=== PATIENT | female | born 1945 | race Caucasian/White ===

== ENCOUNTER 2018-09-28 09:50 | Outpatient (CLI) | payer MEDICARE, BC | END 2018-09-28 09:51 | disposition home or self-care (01) | LOC: BICMAMMO 09:50 | PROVIDERS: ATTEND Internal Medicine | DX: Z12.31 Encounter for screening mammogram for malignant neoplasm of breast (principal); R92.1 Mammographic calcification found on diagnostic imaging of breast | CPT/HCPCS: 77063; 77067 ==

== ENCOUNTER 2019-04-19 04:58 | Inpatient (IN) | payer MEDICARE, BC ==
[2019-04-19] MEDS ORDERED: Ondansetron ODT 4 MG TAB ONE (05:09)
[2019-04-19 05:23] LABS: #Eosinphils 0.1 thou/uL (0.0-0.7); #Lymphocytes 3.3 thou/uL (1.20-3.40); #Monocytes 0.6 thou/uL (0.11-0.59); #Neutrophils 6.1 thou/uL (1.40-6.50); %Eosinophils 1.4 % (0.0-10.0); %Lymphocytes 32.5 % (21.0-51.0); %Monocytes 6.2 % (0.0-10.0); Mean Corpuscular HGB CONC 33.4 g/dL (32.0-36.0); Mean Corpuscular Hemoglobin 30.7 pg (27.0-31.0); Mean Corpuscular Volume 91.8 fL (78.0-98.0); Mean Platelet Volume 8.9 fL (7.4-10.4); Platelet Count 200 thou/uL (130-400); RBC Distribution Width 13.4 % (11.5-14.5); White Blood Cell (WBC) Count 10.2 thou/uL (4.8-10.8)
[2019-04-19 05:40] LABS: ALT (SGPT) 126 U/L (8-55); AST (SGOT) 137 U/L (5-34); Alkaline Phosphatase 246 U/L (40-150); Anion Gap 16 mmol/L (10-20); BUN (Urea Nitrogen) 24 mg/dL (9.8-20.1); Bilirubin, Total 3.3 mg/dL (0.2-1.2); CK (CPK) 20 U/L (29-168); Calc. Creatinine Clearance 0 mL/min (70-130); Calcium 9.8 mg/dL (7.8-10.44); Carbon Dioxide 26 mmol/L (23-31); Chloride 100 mmol/L (98-107); Estimated GFR-MDRD 52; Globulin 3.1 g/dL (2.4-3.5); Glucose 127 mg/dL (83-110); Lipase 29 U/L (8-78); Potassium 3.7 mmol/L (3.5-5.1); Protein, Total 7.1 g/dL (6.0-8.3); Sodium 138 mmol/L (136-145)
[2019-04-19] MEDS ORDERED: Ondansetron PF 4 MG/2 ML Vial ONE (05:50)
[2019-04-19] MEDS ORDERED: Morphine 4 MG/ML VIAL ONE ×2 (05:50→06:29)
[2019-04-19] MEDS ORDERED: Promethazine HCl 25 MG/ML VIAL ONE (06:29)
--- NOTE | 2019-04-19 07:36 | ULT ---
Sonogram right upper quadrant HISTORY: Upper abdomen pain. FINDINGS: Gallbladder is distended up to 11.7 cm width echogenic sludge in the dependent portion. Pat ient was reportedly tender over the gallbladder fossa at the time of the exam. No gallbladder wall thickening or pericholecystic fluid. Common duct is slightly dilated at 0.8 cm. There is mild distent ion of the intrahepatic biliary system. No free fluid in the abdomen. IMPRESSION: Findings of central biliary obstruction and acute cholecystitis include dilatation of the gallbladder and common duct, and intrahepatic biliary system. Positive sonographic Young's sign was also present, along with biliary sludge in the gallbladder.
[2019-04-19 08:50] LABS: Troponin I Less than 0.010 ng/mL (< 0.028)
[2019-04-19] MEDS ORDERED: Morphine 2 MG/ML SYRINGE ONE (09:58)
[2019-04-19] MEDS ORDERED: Ondansetron PF 4 MG/2 ML Vial IVP PRN (10:35)
[2019-04-19] MEDS ORDERED: Bisacodyl 5 MG TAB PO PRN (10:35)
[2019-04-19 12:33] LABS: Troponin I Less than 0.010 ng/mL (< 0.028)
--- NOTE | 2019-04-19 13:24 | CON ---
DATE OF CONSULTATION: 04/19/2019 CHIEF COMPLAINT: Abdominal pain. HISTORY OF PRESENT ILLNESS: Ms. Knight is a 73-year-old woman, who woke up with sudden onset epigastric pain on Thursday night. The pain lasted for 2 hours and went away after taking some Zantac. She did fine yesterday and then at 1:30 this morning, she awoke again with sharp severe epigastric pain associated with an episode of nausea and vomiting. She waited till her son was up this morning and then he drove her to the emergency room for further care. She was given morphine in the emergency room with improvement in her pain, but as the morphine wears off, her pain returns. She has had three doses of the morphine now. She has had no further vomiting. No hematemesis. No diarrhea, constipation, or blood in the stool. No weight changes recently. No fever. The pain does radiate through to her back. PAST MEDICAL HISTORY: Hypertension, diverticulitis, and peptic ulcer. She was diagnosed with a DVT in the leg back in October, was started on Eliquis. Her last dose of Eliquis was last night. PAST SURGICAL HISTORY: Hysterectomy and a lesion removed from the back of her neck. FAMILY HISTORY: Negative for GI malignancy or pancreatic cancer. SOCIAL HISTORY: Rare alcohol. No drugs. No smoking. ALLERGIES: SULFA. MEDICATIONS: Prior to admission; 1. Biotin. 2. Prilosec. 3. Calcium. 4. Vitamin D. 5. Lisinopril 20 mg daily. 6. Metoprolol 100 mg daily. 7. Hydrochlorothiazide 50 mg daily. REVIEW OF SYSTEMS: Negative x10 systems reviewed except as stated in history of present illness. PHYSICAL EXAMINATION: VITAL SIGNS: Blood pressure 149/92, pulse 75, and temperature 98.0. GENERAL: She is in no acute distress. Alert and oriented x3. HEENT: Eyes have no scleral icterus. Oropharynx is clear without lesions. No cervical or supraclavicular lymphadenopathy. LUNGS: Clear to auscultation bilaterally. HEART: Regular rate and rhythm without murmur. ABDOMEN: Soft. She has mild tenderness in the epigastric region without guarding. Bowel sounds are present. EXTREMITIES: No lower extremity edema. Cranial nerves are grossly intact. LABORATORY DATA: White blood cell count 10.2, hemoglobin is 15.0, and platelets 200. Creatinine 1.04, bilirubin 3.3, AST 137, ALT 126, alkaline phosphatase 246, albumin 4.0, and lipase 29. IMAGING: She had an ultrasound in the emergency room that shows dilation of the common bile duct at 0.8 cm with mild intrahepatic dilation and sludge in the gallbladder. IMPRESSION: 1. Possible choledocholithiasis presenting with obstructive liver tests and dilation of the intra and extrahepatic bile ducts and sludge in the gallbladder with abrupt onset of epigastric pain that radiates through to her back. There are no signs of cholangitis. Her lipase is normal. 2. History of deep venous thrombosis, diagnosed back in October, now on Eliquis with her last dose of Eliquis having been last night. 3. Hypertension. RECOMMENDATIONS: 1. Repeat her liver tests in the morning. If the liver tests are trending up, then proceed with ERCP. 2. If the liver tests are markedly improved, then she could proceed with cholecystectomy with intraoperative cholangiogram and then follow with ERCP if the IOC is abnormal. 3. General Surgery consultation. 4. Recheck her liver tests, lipase, and coags in the morning. Job ID: [id number]
--- NOTE | 2019-04-19 14:48 | HP ---
PRIMARY CARE PROVIDER: Vitaly Davies MD CHIEF COMPLAINT: Abdominal pain. HISTORY OF PRESENT ILLNESS: Ms. Knight is a pleasant 73-year-old lady, who was seen at [facility] on April 19, 2019. She reports that 2 nights ago, she had epigastric pain, which were sharp, 10/10 and radiating to the back. At that time, it was not accompanied by nausea or vomiting. 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 The pain resolved after she took some Zantac. She had a recurrence of the pain around 1:30 a.m. today. She describes it as sharp, epigastric, radiating to back, accompanied by nausea. She vomited once and has been retching. She has been taking shallow breaths because taking deep breaths was worsening the pain. She denies any fevers or chills. She denies any chest pain. She presented to the emergency room because of ongoing epigastric pain. When I saw her, the intensity of pain was 3/10. REVIEW OF SYSTEMS: All other systems were reviewed and found to be negative. PAST MEDICAL HISTORY: Hypertension, gastroesophageal reflux disease, and deep vein thrombosis of right leg diagnosed in October 2018, for which she is on apixaban. PAST SURGICAL HISTORY: Hysterectomy. FAMILY HISTORY: Myocardial infarction in her grandmother. CODE STATUS: I discussed her code status. She is full code. CURRENT MEDICATIONS: 1. Apixaban 2.5 mg 2 times a day. 2. Hydrochlorothiazide 50 mg daily. 3. Lisinopril 20 mg daily. 4. Metoprolol succinate 100 mg daily. 5. Biotin 2500 mcg daily. 6. Prilosec 20 mg daily. 7. Calcium 1200 mg daily. 8. Vitamin D3 1000 units daily. PHYSICAL EXAMINATION: GENERAL: On examination, Ms. Knight is awake and alert, not in acute distress. VITAL SIGNS: Blood pressure is 121/63, pulse 108, respiratory rate 20, and oxygen saturation 93% on room air. She is afebrile. EYES: Scleral icterus, no conjunctival pallor. ENT: Dry mucosal membranes. No oropharyngeal erythema or exudates. NECK: Supple, nontender, trachea is midline. RESPIRATORY: Accessory muscles of breathing are not active. Chest wall movements are symmetric bilaterally. Lungs are clear to auscultation without wheeze, rhonchi, or crepitations. CARDIOVASCULAR: S1 and S2 are heard, regular. Peripheral pulses palpable. No carotid bruit. No pericardial rub. ABDOMEN: Soft, mild epigastric and right upper quadrant tenderness. No guarding or rigidity. Bowel sounds heard. No hepatomegaly. No splenomegaly. Young sign is negative. NEUROLOGIC: Cranial nerves 2 through 12 intact, deep tendon reflexes 2+. MUSCULOSKELETAL: Power is 5/5 in all 4 extremities. SKIN: No rashes or subcutaneous nodules. LYMPHATIC: No cervical lymphadenopathy. PSYCHIATRIC: Normal mood, normal affect. The patient is oriented to person, place, and time. LABORATORY DATA: Ms. Knight's labs and investigations were reviewed. Lead electrocardiogram showed normal sinus rhythm with occasional premature ventricular complexes, no ST changes to suggest an acute coronary syndrome. Abdominal ultrasound showed dilatation of the gallbladder and common duct and intrahepatic biliary system. The patient also had a positive sonographic Young sign along with biliary sludge in the gallbladder. She has an unremarkable CBC, normal electrolytes, elevated blood urea nitrogen of 24, normal creatinine, elevated total bilirubin of 3.3, elevated AST of 137, elevated ALT of 126, elevated alkaline phosphatase of 246, and normal troponin I x3. Lipase is normal. ASSESSMENT AND PLAN: Ms. Knight is a pleasant 73-year-old lady, who was seen at [facility] on April 19, 2019. Her problem list includes: 1. Abdominal pain: Most likely secondary to choledocholithiasis. Clinically, she does not have a Young sign, leukocytosis or fevers to suggest acute cholecystitis at this time. She will be admitted to the hospital for further management. She will be kept n.p.o. Gastroenterology Service will be consulted for opinion and help with management. She will receive intravenous fluids for dehydration. 2. History of deep vein thrombosis: The patient has a history of deep vein thrombosis diagnosed about 6 months ago. Her last apixaban dose was last night. We will hold apixaban at this time. 3. Hypertension: We will resume home medications, monitor vital signs and titrate antihypertensives as needed. 4. Gastroesophageal reflux disease: Appears to be stable. Many thanks for allowing me to participate in your patient's care. Please feel free to contact me with any questions or concerns. LEVEL OF RISK: Moderate. LEVEL OF COMPLEXITY: Moderate. Job ID: [id number]
[2019-04-19] MEDS ORDERED: Acetaminophen 500 MG TAB PO PRN (16:22)
--- NOTE | 2019-04-19 16:25 | PDOC.EVN ---
Event Note - Event Note Event Note: After coming to oncology floor, pt spiked fever (temp 100.6). Will order blood cultures and empiric antibiotics (IV Zosyn).
[2019-04-19] MEDS ORDERED: Morphine 2 MG/ML SYRINGE SLOW IVP PRN (16:39)
[2019-04-19 16:43] VITALS: BMI 38.9
[2019-04-19] MEDS: Piperacillin/Tazobactam 4.5 GM in Sodium Chloride 0.9% 100 ML IVPB SCH (17:09)
[2019-04-19] MEDS: Sodium Chloride 0.9% 1,000 ML IV SCH (17:10)
[2019-04-20] MEDS: Sodium Chloride 0.9% 1,000 ML IV SCH ×2 (00:56→18:00)
[2019-04-20] MEDS: Piperacillin/Tazobactam 4.5 GM in Sodium Chloride 0.9% 100 ML IVPB SCH ×3 (00:56→17:03)
[2019-04-20 04:09] LABS: #Eosinphils 0.1 thou/uL (0.0-0.7); #Lymphocytes 1.5 thou/uL (1.20-3.40); #Monocytes 0.8 thou/uL (0.11-0.59); #Neutrophils 7.7 thou/uL (1.40-6.50); %Basophils 0.1 % (0.0-1.0); %Eosinophils 0.6 % (0.0-10.0); %Lymphocytes 14.6 % (21.0-51.0); %Monocytes 7.6 % (0.0-10.0); Hemoglobin 12.9 g/dL (12.0-16.0); Mean Corpuscular HGB CONC 32.1 g/dL (32.0-36.0); Mean Corpuscular Hemoglobin 29.9 pg (27.0-31.0); Mean Corpuscular Volume 93.1 fL (78.0-98.0); Mean Platelet Volume 8.7 fL (7.4-10.4); Platelet Count 174 thou/uL (130-400); RBC Distribution Width 13.4 % (11.5-14.5); Red Blood Cell (RBC) Count 4.33 mill/uL (4.20-5.40)
[2019-04-20 04:15] LABS: INR-International Normal Ratio 1.3; PTT 32.3 SEC (22.9-36.1)
[2019-04-20 04:55] LABS: ALT (SGPT) 95 U/L (8-55); AST (SGOT) 89 U/L (5-34); Albumin 3.1 g/dL (3.4-4.8); Alkaline Phosphatase 179 U/L (40-150); Anion Gap 9 mmol/L (10-20); BUN (Urea Nitrogen) 19 mg/dL (9.8-20.1); Bilirubin, Total 9.9 mg/dL (0.2-1.2); Calc. Creatinine Clearance 97 mL/min (70-130); Carbon Dioxide 32 mmol/L (23-31); Chloride 101 mmol/L (98-107); Estimated GFR-MDRD 66; Globulin 2.4 g/dL (2.4-3.5); Glucose 109 mg/dL (83-110); Lipase 6 U/L (8-78); Potassium 3.4 mmol/L (3.5-5.1); Protein, Total 5.5 g/dL (6.0-8.3); Sodium 139 mmol/L (136-145)
[2019-04-20] MEDS ORDERED: Iothalamate Meglumine 60% 50 ML VIAL FS ONE (11:24)
[2019-04-20] MEDS ORDERED: Indomethacin 50 MG SUPP ONE (11:26)
[2019-04-20] MEDS ORDERED: Fentanyl 100 MCG/2 ML VIAL ONE (11:35)
--- NOTE | 2019-04-20 12:31 | PDOC.PN ---
- Subjective Encounter Start Date: 04/20/19 Encounter Start Time: 10:15 Subjective: a bit anxious, no sob -: still has epigastric dyscomfort but says its better than on admission -: multiple family in room - Objective Resuscitation Status - Order Detail: 04/19/19 10:35 Resuscitation Status Routine Resuscitation Status: FULL: Full Resuscitation Discussed with: patient KERI Reviewed: Yes Vital Signs & Weight: Vital Signs (12 hours) Temp Pulse Resp BP Pulse Ox 04/20/19 10:58 96 04/20/19 08:10 99.0 F 93 18 140/60 96 04/20/19 04:00 98.8 F 106 H 16 145/60 H 92 L Weight Weight 226 lb 12.8 oz I&O: 04/19/19 04/20/19 04/21/19 06:59 06:59 06:59 Intake Total 1265 Balance 1265 Result Diagrams: 04/20/19 03:59 04/20/19 03:59 Phys Exam - Physical Examination HEENT: PERRLA, moist MMs Neck: no JVD, supple Respiratory: no wheezing, no rales Cardiovascular: RRR, no significant murmur Gastrointestinal: soft, no distention, positive bowel sounds Musculoskeletal: no edema, pulses present Neurological: non-focal, moves all 4 limbs Psychiatric: normal affect, A&O x 3 Dx/Plan (1) Choledocholithiasis with acute cholecystitis Code(s): K80.42 - CALCULUS OF BILE DUCT W ACUTE CHOLECYSTITIS W/O OBSTRUCTION Status: Acute (2) HTN (hypertension) Code(s): I10 - ESSENTIAL (PRIMARY) HYPERTENSION Status: Chronic Qualifiers: Hypertension type: essential hypertension Qualified Code(s): I10 - Essential (primary) hypertension (3) H/O deep venous thrombosis Code(s): Z86.718 - PERSONAL HISTORY OF OTHER VENOUS THROMBOSIS AND EMBOLISM Status: Chronic Comment: right LE 10/2018 (4) Obesity (BMI 30-39.9) Code(s): E66.9 - OBESITY, UNSPECIFIED Status: Chronic (5) Elevated LFTs Status: Acute - Plan is going for ERCP today, d/w -: elias around 9 this am -: gentle iv fluids, zosyn, morphine prn -: d/w patient and family at bedside -: to mobilize as tolerated * . Review of Systems - Medications/Allergies Allergies/Adverse Reactions: Allergies Allergy/AdvReac Type Severity Reaction Status Date / Time Sulfa (Sulfonamide Allergy Verified 04/19/19 10:11 Antibiotics) Medications: Current Medications Acetaminophen (Tylenol) 500 mg PO Q4H PRN PRN Reason: Headache/Fever or Mild Pain Last Admin: 04/19/19 17:09 Dose: 500 mg Bisacodyl (Dulcolax) 10 mg PO DAILYPRN PRN PRN Reason: Constipation Sodium Chloride (Normal Saline 0.9%) 1,000 mls @ 70 mls/hr IV .[id number] [facility] Last Admin: 04/20/19 00:56 Dose: 1,000 mls Piperacillin Sod/Tazobactam (Sod 4.5 gm/ Sodium Chloride) 100 mls @ 200 mls/hr IVPB 0100,0900,1700 [facility] Last Admin: 04/20/19 09:10 Dose: 100 mls Morphine Sulfate (Morphine) 2 mg SLOW IVP Q6H PRN PRN Reason: Moderate to Severe Pain (6-10) Ondansetron HCl (Zofran) 4 mg IVP Q6H PRN PRN Reason: Nausea/Vomiting Pantoprazole Sodium (Protonix) 40 mg PO DAILY [facility]
--- NOTE | 2019-04-20 12:46 | RAD ---
EXAM: ERCP: 04/20/19 HISTORY: Upper abdominal pain. Biliary duct obstruction and acute cholecystitis. COMPARISON: Ultrasound examination, 04/19/19. FINDINGS: Eight portable fluoroscopic spot images are presented for interpretation. There is injection of the c ommon duct which is dilated with some contrast extending into the gallbladder. Intrahepatic ducts are suboptimally imaged on this study. The last spot image demonstrates drainage of the contrast from th e common duct. IMPRESSION: Dilated common bile duct. POS: [facility]
[2019-04-20] MEDS ORDERED: HYDROcodone/Acetaminophen 5/325 mg Tablet PO PRN ×2 (15:52)
--- NOTE | 2019-04-20 16:37 | OP ---
DATE OF PROCEDURE: 04/20/2019 PROCEDURES PERFORMED: Endoscopic retrograde cholangiopancreatography with sphincterotomy and balloon stone extraction. PREOPERATIVE DIAGNOSIS: Choledocholithiasis. DESCRIPTION OF PROCEDURE: Informed consent was obtained from the patient. She was sedated with general anesthesia and placed in the prone position. The duodenoscope was advanced easily to the second portion of the duodenum, where the ampulla was identified and had pus passing from the ampulla. The common bile duct was selectively cannulated easily on the first attempt with sphincterotome and guidewire. The cholangiogram was performed, which showed distal filling defects and an 11 mm common bile duct with normal intra and extrahepatic ducts. The cystic duct was patent and contrast did pass to the gallbladder. A large amount of pus again passed from the sphincter as contrast was injected. A large sphincterotomy was performed. Two yellow cholesterol stones were extracted with the 12 mm balloon. The stones measured 11 to 12 mm each. Occlusion cholangiogram confirmed the duct to be clear of further filling defects. The fluid and air were suctioned from the stomach, then procedure was completed. IMPRESSION: 1. Cholangiogram showing distal filling defects. The common bile duct was 11 mm. Intra and extrahepatic ducts were unremarkable. The cystic duct was patent and the gallbladder was opacified with some contrast. 2. Large sphincterotomy performed. 3. Two yellow cholesterol stones measuring 11 to 12 mm were extracted with a 12 mm balloon. 4. Occlusion cholangiogram confirmed the duct to be clear of further filling defects. 5. Cholangitis with a large amount of pus extracted from the duct along with the gallstones. RECOMMENDATIONS: 1. Follow trend of the liver tests. 2. Continue antibiotics. 3. Cholecystectomy per Dr. Mark. Job ID: [id number]
[2019-04-20] MEDS: Metoprolol Tartrate 50 MG TAB PO SCH (20:30)
[2019-04-20] MEDS: Lisinopril 5 MG TAB PO SCH (20:31)
[2019-04-21] MEDS: Piperacillin/Tazobactam 4.5 GM in Sodium Chloride 0.9% 100 ML IVPB SCH ×3 (00:37→16:49)
[2019-04-21 04:41] LABS: #Lymphocytes 1.3 thou/uL (1.20-3.40); #Monocytes 0.4 thou/uL (0.11-0.59); #Neutrophils 9.1 thou/uL (1.40-6.50); %Basophils 0.3 % (0.0-1.0); %Eosinophils 0.1 % (0.0-10.0); %Lymphocytes 11.9 % (21.0-51.0); %Monocytes 3.9 % (0.0-10.0); %Neutrophils 83.8 % (42.0-75.0); Hemoglobin 12.1 g/dL (12.0-16.0); Mean Corpuscular HGB CONC 32.1 g/dL (32.0-36.0); Mean Corpuscular Hemoglobin 30.1 pg (27.0-31.0); Mean Corpuscular Volume 93.7 fL (78.0-98.0); Mean Platelet Volume 9.1 fL (7.4-10.4); Platelet Count 173 thou/uL (130-400); RBC Distribution Width 13.1 % (11.5-14.5); Red Blood Cell (RBC) Count 4.01 mill/uL (4.20-5.40); White Blood Cell (WBC) Count 10.8 thou/uL (4.8-10.8)
[2019-04-21 05:06] LABS: ALT (SGPT) 75 U/L (8-55); AST (SGOT) 67 U/L (5-34); Alkaline Phosphatase 156 U/L (40-150); Anion Gap 10 mmol/L (10-20); BUN (Urea Nitrogen) 22 mg/dL (9.8-20.1); Bilirubin, Total 8.2 mg/dL (0.2-1.2); Calc. Creatinine Clearance 90 mL/min (70-130); Calcium 9.1 mg/dL (7.8-10.44); Carbon Dioxide 31 mmol/L (23-31); Chloride 101 mmol/L (98-107); Estimated GFR-MDRD 61; Globulin 2.6 g/dL (2.4-3.5); Glucose 148 mg/dL (83-110); Potassium 4.1 mmol/L (3.5-5.1); Protein, Total 5.6 g/dL (6.0-8.3); Sodium 138 mmol/L (136-145)
[2019-04-21] MEDS: Lisinopril 5 MG TAB PO SCH ×2 (09:03→20:58)
[2019-04-21] MEDS: Metoprolol Tartrate 50 MG TAB PO SCH ×2 (09:03→20:58)
--- NOTE | 2019-04-21 10:43 | HP ---
CHIEF COMPLAINT: Gallstones. HISTORY OF PRESENT ILLNESS: This is a 73-year-old female who was admitted with an elevated bilirubin and sludge on ultrasound and upper abdominal pain. Her bilirubin went up to 9. She had ERCP and stone extraction by Dr. Fonseca yesterday. She feels better today. She still has an itchy skin, but her pain is much improved. No prior known history of jaundice, gallstones, or pancreatitis. PAST MEDICAL HISTORY: Includes GERD, hypertension, history of DVT. PAST SURGICAL HISTORY: Hysterectomy. MEDICATIONS: Medicines taken daily, see list. ALLERGIES: SEE LIST. SOCIAL HISTORY: No smoking, alcohol, or other drugs. REVIEW OF SYSTEMS: Ten-system review of systems is otherwise negative unless described above. PHYSICAL EXAMINATION: HEENT: Icteric sclerae. Oropharynx clear. NECK: No lymphadenopathy. CHEST: Clear. HEART: Regular rate and rhythm. ABDOMEN: Soft, nontender, nondistended. LABORATORY DATA: Today, sodium 138, potassium 4.1 creatinine 0.9. Bilirubin is 8.2. Hemoglobin is 12, white blood cell count is 10. ASSESSMENT: Gallstones with history of choledocholithiasis, status post endoscopic retrograde cholangiopancreatography and stone extraction. PLAN: Laparoscopic cholecystectomy tomorrow. Risks, benefits, and alternatives were discussed. She gives consent. We will do this tomorrow. Job ID: [id number]
--- NOTE | 2019-04-21 12:46 | PDOC.PN ---
- Subjective Encounter Start Date: 04/21/19 Encounter Start Time: 11:15 Subjective: abd pain is almost gone, no nausea -: ate breakfast well -: is amb in room - Objective Resuscitation Status - Order Detail: 04/19/19 10:35 Resuscitation Status Routine Resuscitation Status: FULL: Full Resuscitation Discussed with: vin SAAVEDRA Reviewed: Yes Vital Signs & Weight: Vital Signs (12 hours) Temp Pulse Resp BP BP Pulse Ox 04/21/19 09:03 67 126/58 L 04/21/19 07:15 97.6 F 67 16 126/58 L 93 L 04/21/19 04:00 97.8 F 73 16 124/61 95 Weight Weight 226 lb 12.8 oz I&O: 04/20/19 04/21/19 04/22/19 06:59 06:59 06:59 Intake Total 1265 1790 Balance 1265 1790 Result Diagrams: 04/21/19 04:06 04/21/19 04:06 Phys Exam - Physical Examination HEENT: PERRLA, moist MMs Neck: no JVD, supple Respiratory: no wheezing, no rales Cardiovascular: RRR, no significant murmur Gastrointestinal: soft, no distention, positive bowel sounds Musculoskeletal: no edema, pulses present Neurological: non-focal, moves all 4 limbs Psychiatric: normal affect, A&O x 3 Dx/Plan (1) Choledocholithiasis with acute cholecystitis Code(s): K80.42 - CALCULUS OF BILE DUCT W ACUTE CHOLECYSTITIS W/O OBSTRUCTION Status: Acute Comment: s/p ercp and extraction of 2 cholesterol stone (2) HTN (hypertension) Code(s): I10 - ESSENTIAL (PRIMARY) HYPERTENSION Status: Chronic Qualifiers: Hypertension type: essential hypertension Qualified Code(s): I10 - Essential (primary) hypertension (3) H/O deep venous thrombosis Code(s): Z86.718 - PERSONAL HISTORY OF OTHER VENOUS THROMBOSIS AND EMBOLISM Status: Chronic Comment: right LE 10/2018 (4) Obesity (BMI 30-39.9) Code(s): E66.9 - OBESITY, UNSPECIFIED Status: Chronic (5) Elevated LFTs Status: Acute (6) Acute cholangitis Code(s): K83.09 - OTHER CHOLANGITIS Status: Acute Comment: sec to gallstones - Plan continue zosyn, lopressor, lisinopril and protonix -: may dc iv fluids -: hemostable -: for lap luis antonio in am -: lft's in am * . Review of Systems - Medications/Allergies Allergies/Adverse Reactions: Allergies Allergy/AdvReac Type Severity Reaction Status Date / Time Sulfa (Sulfonamide Allergy Verified 04/19/19 10:11 Antibiotics) Medications: Current Medications Acetaminophen (Tylenol) 500 mg PO Q4H PRN PRN Reason: Headache/Fever or Mild Pain Last Admin: 04/19/19 17:09 Dose: 500 mg Hydrocodone Bitart/Acetaminophen ([place] 5/325) 1 tab PO Q4H PRN PRN Reason: Moderate Pain (4-6) Hydrocodone Bitart/Acetaminophen ([place] 5/325) 2 tab PO Q4H PRN PRN Reason: Severe Pain (7-10) Bisacodyl (Dulcolax) 10 mg PO DAILYPRN PRN PRN Reason: Constipation Last Admin: 04/21/19 09:03 Dose: 10 mg Piperacillin Sod/Tazobactam (Sod 4.5 gm/ Sodium Chloride) 100 mls @ 200 mls/hr IVPB 0100,0900,1700 [facility] Last Admin: 04/21/19 09:02 Dose: 100 mls Lisinopril (Zestril) 5 mg PO BID [facility] Last Admin: 04/21/19 09:03 Dose: 5 mg Metoprolol Tartrate (Lopressor) 50 mg PO BID [facility] Last Admin: 04/21/19 09:03 Dose: 50 mg Morphine Sulfate (Morphine) 2 mg SLOW IVP Q6H PRN PRN Reason: Moderate to Severe Pain (6-10) Ondansetron HCl (Zofran) 4 mg IVP Q6H PRN PRN Reason: Nausea/Vomiting Pantoprazole Sodium (Protonix) 40 mg PO DAILY [facility] Last Admin: 04/21/19 09:03 Dose: 40 mg Sodium Chloride (Flush - Normal Saline) 10 ml IVF PRN PRN PRN Reason: Saline Flush Last Admin: 04/21/19 09:03 Dose: 10 ml
--- NOTE | 2019-04-21 22:21 | PRG ---
DATE OF SERVICE: 04/21/2019 SUBJECTIVE: Ms. Knight's pain was immediately relieved following the ERCP with sphincterotomy and stone extraction. She has had no complaints today. OBJECTIVE: VITAL SIGNS: Temperature is 97.9, pulse 80, blood pressure 166/81. GENERAL: She is jaundiced. No acute distress. LUNGS: Clear to auscultation bilaterally. HEART: Regular rate and rhythm without murmur. ABDOMEN: Soft, nontender, nondistended. Bowel sounds are present. EXTREMITIES: No lower extremity edema. LABORATORY DATA: Creatinine 0.9, bilirubin 8.2, AST 67, ALT 75, alkaline phosphatase 156, albumin 3.0. Lipase was 6 yesterday. White blood cell count 10.8, hemoglobin 12.1, platelets 173. IMPRESSION: Choledocholithiasis with cholangitis, status post ERCP and sphincterotomy with balloon stone extraction. RECOMMENDATIONS: 1. She is on Zosyn. 2. Cholecystectomy is planned for tomorrow to prevent recurrent episodes of choledocholithiasis. 3. Eliquis is currently held. She has been on anticoagulation for lower extremity DVT. She can restart the anticoagulation once it is okay with General Surgery following her cholecystectomy. 4. I will sign off for now. Please call if GI can be of assistance. Job ID: [id number]
[2019-04-22] MEDS: Piperacillin/Tazobactam 4.5 GM in Sodium Chloride 0.9% 100 ML IVPB SCH ×2 (00:56→08:46)
[2019-04-22 06:34] LABS: #Eosinphils 0.1 thou/uL (0.0-0.7); #Lymphocytes 2.5 thou/uL (1.20-3.40); #Monocytes 0.5 thou/uL (0.11-0.59); #Neutrophils 5.1 thou/uL (1.40-6.50); %Basophils 0.1 % (0.0-1.0); %Eosinophils 1.1 % (0.0-10.0); %Lymphocytes 30.6 % (21.0-51.0); %Neutrophils 62.1 % (42.0-75.0); Hemoglobin 12.9 g/dL (12.0-16.0); Mean Corpuscular HGB CONC 32.6 g/dL (32.0-36.0); Mean Corpuscular Hemoglobin 30.6 pg (27.0-31.0); Mean Corpuscular Volume 93.6 fL (78.0-98.0); Mean Platelet Volume 8.9 fL (7.4-10.4); Platelet Count 224 thou/uL (130-400); RBC Distribution Width 13.1 % (11.5-14.5); Red Blood Cell (RBC) Count 4.23 mill/uL (4.20-5.40); White Blood Cell (WBC) Count 8.2 thou/uL (4.8-10.8)
[2019-04-22 06:45] LABS: ALT (SGPT) 80 U/L (8-55); AST (SGOT) 71 U/L (5-34); Albumin 3.3 g/dL (3.4-4.8); Alkaline Phosphatase 160 U/L (40-150); Anion Gap 13 mmol/L (10-20); BUN (Urea Nitrogen) 24 mg/dL (9.8-20.1); Calc. Creatinine Clearance 95 mL/min (70-130); Carbon Dioxide 28 mmol/L (23-31); Chloride 103 mmol/L (98-107); Estimated GFR-MDRD 65; Globulin 2.8 g/dL (2.4-3.5); Glucose 82 mg/dL (83-110); Potassium 3.5 mmol/L (3.5-5.1); Protein, Total 6.1 g/dL (6.0-8.3); Sodium 140 mmol/L (136-145)
[2019-04-22] MEDS: Metoprolol Tartrate 50 MG TAB PO SCH (08:45)
[2019-04-22] MEDS: Lisinopril 5 MG TAB PO SCH (08:45)
[2019-04-22 09:24] VITALS: BP 129/65; TEMP 97.4
[2019-04-22] MEDS ORDERED: Bupivacaine/Epinephrine 0.25% 30 ML VIAL ONE (11:40)
[2019-04-22] MEDS ORDERED: Fentanyl 100 MCG/2 ML VIAL ONE ×4 (11:53→13:44)
[2019-04-22] MEDS ORDERED: Promethazine HCl 25 MG/ML VIAL SLOW IVP PRN (12:24)
[2019-04-22] MEDS ORDERED: Ondansetron HCl/PF 4 MG/2 ML Vial IVP PRN (12:24)
[2019-04-22] MEDS ORDERED: Promethazine HCl 25 MG/ML VIAL IM PRN (12:24)
[2019-04-22] MEDS ORDERED: Meperidine HCl/PF 25 MG/ML VIAL SLOW IVP PRN (12:24)
--- NOTE | 2019-04-22 12:58 | PDOC.PN ---
- Subjective Encounter Start Date: 04/22/19 Encounter Start Time: 10:30 -: old records requested/rev Patient seen and examined. No new complaints. No overnight events - Objective Resuscitation Status - Order Detail: 04/19/19 10:35 Resuscitation Status Routine Resuscitation Status: FULL: Full Resuscitation Discussed with: patient KERI Reviewed: Yes Vital Signs & Weight: Vital Signs (12 hours) Temp Pulse Resp BP Pulse Ox 04/22/19 08:45 80 04/22/19 08:00 97.4 F L 71 18 129/65 96 Weight Weight 226 lb 12.8 oz I&O: 04/21/19 04/22/19 04/23/19 06:59 06:59 06:59 Intake Total 1790 200 Balance 1790 200 Result Diagrams: 04/22/19 06:17 04/22/19 06:17 Phys Exam - Physical Examination Constitutional: NAD HEENT: PERRLA, moist MMs, sclera anicteric Neck: no JVD, supple Respiratory: no wheezing, no rales, no rhonchi Cardiovascular: RRR, no significant murmur, no rub Gastrointestinal: soft, non-tender, no distention, positive bowel sounds Musculoskeletal: no edema, pulses present Neurological: non-focal, normal sensation, moves all 4 limbs Lymphatic: no nodes Psychiatric: normal affect, A&O x 3 Skin: no rash, normal turgor Dx/Plan (1) Acute cholangitis Code(s): K83.09 - OTHER CHOLANGITIS Status: Acute Comment: sec to gallstones (2) Choledocholithiasis with acute cholecystitis Code(s): K80.42 - CALCULUS OF BILE DUCT W ACUTE CHOLECYSTITIS W/O OBSTRUCTION Status: Acute Comment: s/p ercp and extraction of 2 cholesterol stone (3) Elevated LFTs Status: Acute (4) H/O deep venous thrombosis Code(s): Z86.718 - PERSONAL HISTORY OF OTHER VENOUS THROMBOSIS AND EMBOLISM Status: Chronic Comment: right LE 10/2018 (5) HTN (hypertension) Code(s): I10 - ESSENTIAL (PRIMARY) HYPERTENSION Status: Chronic Qualifiers: Hypertension type: essential hypertension Qualified Code(s): I10 - Essential (primary) hypertension (6) Obesity (BMI 30-39.9) Code(s): E66.9 - OBESITY, UNSPECIFIED Status: Chronic - Plan cont current plan of care * medication reviewed as below * symptomatic treatment * today lap luis antonio * pt wants to go home after that if surgeon OK * augmentin on discharge, T3 for pain. Review of Systems - Review of Systems ENT: negative: Ear Pain, Ear Discharge, Nose Pain, Nose Discharge, Nose Congestion, Mouth Pain, Mouth Swelling, Throat Pain, Throat Swelling, Other Respiratory: negative: Cough, Dry, Shortness of Breath, Hemoptysis, SOB with Excertion, Pleuritic Pain, Sputum, Wheezing Cardiovascular: negative: chest pain, palpitations, orthopnea, paroxysmal nocturnal dyspnea, edema, light headedness, other Gastrointestinal: negative: Nausea, Vomiting, Abdominal Pain, Diarrhea, Constipation, Melena, Hematochezia, Other Genitourinary: negative: Dysuria, Frequency, Incontinence, Hematuria, Retention , Other Musculoskeletal: negative: Neck Pain, Shoulder Pain, Arm Pain, Back Pain, Hand Pain, Leg Pain, Foot Pain, Other Skin: negative: Rash, Lesions, True, Bruising, Other - Medications/Allergies Allergies/Adverse Reactions: Allergies Allergy/AdvReac Type Severity Reaction Status Date / Time Sulfa (Sulfonamide Allergy Verified 04/19/19 10:11 Antibiotics) Medications: Current Medications Acetaminophen (Tylenol) 500 mg PO Q4H PRN PRN Reason: Headache/Fever or Mild Pain Last Admin: 04/19/19 17:09 Dose: 500 mg Hydrocodone Bitart/Acetaminophen ([place] 5/325) 1 tab PO Q4H PRN PRN Reason: Moderate Pain (4-6) Hydrocodone Bitart/Acetaminophen ([place] 5/325) 2 tab PO Q4H PRN PRN Reason: Severe Pain (7-10) Bisacodyl (Dulcolax) 10 mg PO DAILYPRN PRN PRN Reason: Constipation Last Admin: 04/21/19 09:03 Dose: 10 mg Fentanyl (Pacu-Sublimaze) 50 mcg SLOW IVP Q10MIN PRN PRN Reason: Moderate to Severe Pain (6-10) Stop: 04/22/19 15:24 Piperacillin Sod/Tazobactam (Sod 4.5 gm/ Sodium Chloride) 100 mls @ 200 mls/hr IVPB 0100,0900,1700 CARMEN Last Admin: 04/22/19 08:46 Dose: 100 mls Lisinopril (Zestril) 5 mg PO BID [facility] Last Admin: 04/22/19 08:45 Dose: 5 mg Meperidine HCl (Pacu-Demerol) 12.5 mg SLOW IVP ONE PRN PRN Reason: Shivering Stop: 04/22/19 15:24 Metoprolol Tartrate (Lopressor) 50 mg PO BID [facility] Last Admin: 04/22/19 08:45 Dose: 50 mg Morphine Sulfate (Morphine) 2 mg SLOW IVP Q6H PRN PRN Reason: Moderate to Severe Pain (6-10) Ondansetron HCl (Zofran) 4 mg IVP Q6H PRN PRN Reason: Nausea/Vomiting Ondansetron HCl (Pacu-Zofran) 4 mg IVP ONE PRN PRN Reason: Nausea/Vomiting Stop: 04/22/19 15:24 Pantoprazole Sodium (Protonix) 40 mg PO DAILY [facility] Last Admin: 04/22/19 08:45 Dose: 40 mg Promethazine HCl (Pacu-Phenergan) 6.25 mg SLOW IVP ONE PRN PRN Reason: Nausea/Vomiting Stop: 04/22/19 15:24 Promethazine HCl (Pacu-Phenergan) 6.25 mg IM ONE PRN PRN Reason: Nausea/Vomiting Stop: 04/22/19 15:24 Sodium Chloride (Flush - Normal Saline) 10 ml IVF PRN PRN PRN Reason: Saline Flush Last Admin: 04/21/19 20:59 Dose: 10 ml
[2019-04-22] MEDS ORDERED: Morphine 4 MG/ML VIAL ONE (13:20)
--- NOTE | 2019-04-22 13:22 | DIS ---
DATE OF ADMISSION: 04/20/2019 DATE OF DISCHARGE: 04/22/2019 PRIMARY CARE PHYSICIAN: Dr. Vitaly Simpson. DISCHARGE DISPOSITION: Home. PRIMARY DISCHARGE DIAGNOSIS: Choledocholithiasis with acute cholecystitis, status post endoscopic retrograde cholangiopancreatography and stone extraction, status post laparoscopic cholecystectomy, abnormal liver function study due to problem #1. SECONDARY DISCHARGE DIAGNOSES: History of deep venous thrombosis on anticoagulation, hypertension, obesity with body mass index 38. PRIMARY PROCEDURE/OPERATION: ERCP with stone extraction by Dr. Fonseca. RADIOLOGICAL INVESTIGATION: ERCP, x-ray, abdominal ultrasound. SIGNIFICANT LABORATORY DATA: CBC normal. INR 1.3. Bilirubin 4.0, AST 71, ALT 80, alkaline phosphatase 160, and albumin 3.3. DISCHARGE MEDICATION: 1. Augmentin 875 mg p.o. b.i.d. for 5 days. 2. Tylenol no. 3 one or two tablets q.6 hourly p.r.n. 3. Omeprazole 20 mg daily. 4. Toprol-XL 100 mg daily. 5. Lisinopril 20 mg daily. 6. Hydrochlorothiazide 50 mg daily. 7. Vitamin D2 1000 units p.o. daily. 8. Calcium 1 tablet daily. 9. Biotin 2500 mcg p.o. daily. 10. Eliquis 5 mg p.o. b.i.d. CONTRAINDICATION: None. CODE STATUS: Full code. INPATIENT DIRECTOR OF INTERCOLLEGIATE ATHLETICS: Dr. Fonseca was consulted while in the hospital. Dr. Mark is consulted for laparoscopic cholecystectomy. TEST RESULTS PENDING ON DISCHARGE: None. ALLERGIES: SULFA DRUGS. DISCHARGE PLAN: Posthospital, the patient will follow up with Dr. Mark, Dr. Fonseca, and Dr. Vitaly Davies as instructed. HOSPITAL COURSE: A 73-year-old female, who was admitted by Dr. Gomez. Please see his H and P for further details. The patient was having acute right upper quadrant abdominal pain. She was diagnosed with choledocholithiasis. There was suspicious for cholangitis. The patient was treated with empiric antibiotic therapy. Dr. Fonseca did an ERCP and stone extraction. After that, the patient's pain significantly improved. The patient's LFT also started improving. Her culture remained negative. The patient was evaluated by General Surgery for laparoscopic cholecystectomy, which will be done after surgery. If surgeon is okay, then we will consider discharging her home. Above-mentioned medication was prescribed. The patient was seen and examined at bedside today. Please see my progress note from today. Job ID: [id number]
[2019-04-22] MEDS ORDERED: Acetaminophen 1,000 MG in Premix Bag 1 BAG IVPB SCH (13:45)
--- NOTE | 2019-04-22 20:13 | OP ---
DATE OF PROCEDURE: 04/22/2019 PREOPERATIVE DIAGNOSES: 1. Symptomatic gallstones. 2. History of choledocholithiasis. POSTOPERATIVE DIAGNOSES: 1. Symptomatic gallstones. 2. History of choledocholithiasis. PROCEDURE PERFORMED: Laparoscopic cholecystectomy. ANESTHESIA: General. ESTIMATED BLOOD LOSS: Minimal. COMPLICATIONS: None. SPECIMEN: Gallbladder. DESCRIPTION OF PROCEDURE: The patient was taken to the operating room and laid supine on the operating room table. After general anesthetic was obtained, the abdomen was prepped and draped in a sterile fashion. A curved incision was made below the umbilicus. Cautery was used to dissect down to the umbilical fascia. Umbilical fascia was incised and held up using a Ashleigh. The abdominal cavity was entered using a Carline clamp. Holding stitch of Vicryl was placed on each side of the fascia. Coto trocar was placed. High-flow pneumoperitoneum was obtained. An upper midline 5 mm port and 2 right upper quadrant 5 mm ports were placed under direct camera visualization. The gallbladder was retracted from the gallbladder fossa. The peritoneum of the gallbladder was opened anteriorly and posteriorly. The critical view triangle was seen showing only the cystic duct and cystic artery branching from medial to lateral. There were no other branching structures. Two clips were placed proximally on the cystic duct and one laterally. It was cut using laparoscopic scissors. The cystic artery was taken in the same way. Electrocautery was then used to dissect the gallbladder out of the gallbladder fossa. The gallbladder was placed in an Endo catch bag and brought out through the Coto. There was no bleeding or bile in the liver bed. The cystic duct stump and cystic artery stump were intact, without evidence of extravasation or bleeding. All port sites were infiltrated using local anesthesia. All ports were removed under camera visualization. Pneumoperitoneum was let down. The Vicryl was used to close the fascial defect below the umbilicus. All incisions were irrigated and closed using 4-0 Monocryl and Dermabond. The patient was en route to Recovery in stable condition. All instrument counts, needle counts and lap counts were correct. Job ID: [id number]
--- NOTE | 2019-04-23 10:26 | EKG ---
Test Reason : Blood Pressure : / mmHG Vent. Rate : 099 BPM Atrial Rate : 099 BPM P-R Int : 190 ms QRS Dur : 078 ms QT Int : 376 ms P-R-T Axes : 081 -59 036 degrees QTc Int : 482 ms Sinus rhythm with occasional Premature ventricular complexes Low voltage QRS Left anterior fascicular block Cannot rule out Anterior infarct , age undetermined Abnormal ECG Confirmed by KASIA ECHAVARRIA ([id number]), editor producer RICH JACKSON ([id number]) on 04/23/2019 10:26:07 AM Referred By: Confirmed By:KASIA ECHAVARRIA
== END 2019-04-22 17:30 | disposition home or self-care (01) | DRG 419 ==
LOC: ERS 04:58 → ERHOLD 06:39 → ONC 15:37 → OBSVTOIN 04-20 10:38
PROVIDERS: ADMIT Hospitalist; ATTEND Hospitalist
PROC: 0F798ZZ Dilation of Common Bile Duct, Via Natural or Artificial Opening Endoscopic (ICD-10-PCS; 2019-04-20)
PROC: 0FT44ZZ Resection of Gallbladder, Percutaneous Endoscopic Approach (ICD-10-PCS; principal; 2019-04-22)
DX: K80.42 Calculus of bile duct with acute cholecystitis without obstruction (principal); I10 Essential (primary) hypertension; E66.9 Obesity, unspecified; K21.9 Gastro-esophageal reflux disease without esophagitis; Z86.718 Personal history of other venous thrombosis and embolism; Z90.710 Acquired absence of both cervix and uterus; Z79.01 Long term (current) use of anticoagulants; Z79.899 Other long term (current) drug therapy; Z88.2 Allergy status to sulfonamides; Z68.38 Body mass index [BMI] 38.0-38.9, adult
CPT/HCPCS: 36415; 74330; 76705; 80053; 82550; 83690; 84484; 85025; 85610; 85730; 87040; 93005; 96361; 96365; 96366; 96375; 96376; J0131; J2270; J2405; J2543; J2550; J3010; J3490; Q0162; Q9961

== ENCOUNTER 2019-09-29 09:49 | Outpatient (CLI) | payer MEDICARE, BC ==
--- NOTE | 2019-09-29 10:46 | MMO ---
Bilateral MAMMO Bilat Screen [facility]. CLINICAL HISTORY: Patient is 74 years old and is seen for screening. The patient has no family history of breast cancer. The patient has no personal history of cancer. VIEWS: The views performed were: bilateral craniocaudal with tomosynthesis and bilateral mediolateral oblique with tomosynthesis. FILMS COMPARED: The present examination has been compared to prior imaging studies performed at [facility] on 09/17/2015, 09/18/2016, 09/23/2017 and 09/28/2018. This study has been interpreted with the assistance of computer-aided detection. MAMMOGRAM FINDINGS: There are scattered fibroglandular densities. There are stable benign appearing calcifications seen in both breasts. There are no suspicious masses, suspicious calcifications, or new areas of architectural distortion. IMPRESSION: THERE IS NO MAMMOGRAPHIC EVIDENCE OF MALIGNANCY. A ROUTINE FOLLOW-UP MAMMOGRAM IN 1 YEAR IS RECOMMENDED. THE RESULTS OF THIS EXAM WERE SENT TO THE PATIENT. ACR BI-RADS Category 2 - Benign finding MAMMOGRAPHY NOTE: 1. A negative mammogram report should not delay a biopsy if a dominant of clinically suspicious mass is present. 2. Approximately 10% to 15% of breast cancers are not detected by mammography. 3. Adenosis and dense breasts may obscure an underlying neoplasm. Reported by: RINA ANNE MD Electonically Signed: [id number]
== END 2019-09-29 09:50 | disposition home or self-care (01) ==
LOC: BICMAMMO 09:49
PROVIDERS: ATTEND Internal Medicine
DX: Z12.31 Encounter for screening mammogram for malignant neoplasm of breast (principal)
CPT/HCPCS: 77063; 77067

== ENCOUNTER 2020-10-11 10:31 | Outpatient (CLI) | payer MEDICARE, BC ==
--- NOTE | 2020-10-11 11:20 | MMO ---
Bilateral MAMMO Bilat Screen [facility]. CLINICAL HISTORY: Patient is 75 years old and is seen for screening. The patient has no family history of breast cancer. The patient has no personal history of cancer. VIEWS: The views performed were: bilateral craniocaudal with tomosynthesis and bilateral mediolateral oblique with tomosynthesis. FILMS COMPARED: The present examination has been compared to prior imaging studies performed at [facility] on 09/18/2016, 09/23/2017, 09/28/2018 and 09/29/2019. This study has been interpreted with the assistance of computer-aided detection. MAMMOGRAM FINDINGS: There are scattered fibroglandular densities. There are stable benign appearing calcifications seen in both breasts. There are no suspicious masses, suspicious calcifications, or new areas of architectural distortion. IMPRESSION: THERE IS NO MAMMOGRAPHIC EVIDENCE OF MALIGNANCY. A ROUTINE FOLLOW-UP MAMMOGRAM IN 1 YEAR IS RECOMMENDED. THE RESULTS OF THIS EXAM WERE SENT TO THE PATIENT. ACR BI-RADS Category 2 - Benign finding MAMMOGRAPHY NOTE: 1. A negative mammogram report should not delay a biopsy if a dominant of clinically suspicious mass is present. 2. Approximately 10% to 15% of breast cancers are not detected by mammography. 3. Adenosis and dense breasts may obscure an underlying neoplasm. Reported by: RINA ANNE MD Electonically Signed: [id number]
== END 2020-10-11 10:32 | disposition home or self-care (01) ==
LOC: BICMAMMO 10:31
PROVIDERS: ATTEND Internal Medicine
DX: Z12.31 Encounter for screening mammogram for malignant neoplasm of breast (principal)
CPT/HCPCS: 77063; 77067

== ENCOUNTER 2021-10-30 09:48 | Outpatient (CLI) | payer MEDICARE, BC | END 2021-10-30 09:49 | disposition home or self-care (01) | LOC: BICMAMMO 09:48 | PROVIDERS: ATTEND Internal Medicine | DX: Z12.31 Encounter for screening mammogram for malignant neoplasm of breast (principal) | CPT/HCPCS: 77063; 77067 ==

== ENCOUNTER 2022-11-28 09:33 | Outpatient (CLI) | payer MEDICARE, BC | END 2022-11-28 09:34 | disposition home or self-care (01) | LOC: BICMAMMO 09:33 | PROVIDERS: ATTEND Internal Medicine | DX: Z12.31 Encounter for screening mammogram for malignant neoplasm of breast (principal) | CPT/HCPCS: 77063; 77067 ==

== ENCOUNTER 2023-01-09 06:01 | Day surgery (SDC) | payer MEDICARE, BC ==
[2023-01-08 10:08] VITALS: BMI 37.8
[2023-01-09 07:20] LABS: Hemoglobin 14.7 g/dL (12.0-16.0); Mean Corpuscular HGB CONC 32.4 g/dL (32.0-36.0); Mean Corpuscular Hemoglobin 29.4 pg (27.0-31.0); Mean Corpuscular Volume 90.8 fl (78.0-98.0); Platelet Count 172 10x3/uL (130-400); RBC Distribution Width 13.4 % (11.5-14.5); Red Blood Cell (RBC) Count 5.01 mill/uL (4.20-5.40); White Blood Cell (WBC) Count 6.6 10x3/uL (4.8-10.8)
[2023-01-09 07:31] LABS: Anion Gap 15 mmol/L (10-20); BUN (Urea Nitrogen) 20 mg/dL (9.8-20.1); Calc. Creatinine Clearance 89 mL/min (70-130); Calcium 9.1 mg/dL (7.8-10.44); Carbon Dioxide 25 mmol/L (23-31); Chloride 101 mmol/L (98-107); Estimated GFR 67; Glucose 90 mg/dL (83-110); Potassium 3.9 mmol/L (3.5-5.1); Sodium 137 mmol/L (136-145)
[2023-01-09] MEDS ORDERED: PROPOFOL 200 MG/20 ML VIAL ONE (08:04)
[2023-01-09] MEDS ORDERED: Lidocaine 1% PF 5 ML VIAL ONE (08:04)
== END 2023-01-09 09:20 | disposition home or self-care (01) ==
LOC: SDC 06:01
PROVIDERS: ATTEND Internal Medicine Cardiovascular Disease
PROC: 5A2204Z Restoration of Cardiac Rhythm, Single (ICD-10-PCS; principal; 2023-01-09)
DX: I48.91 Unspecified atrial fibrillation (principal); I10 Essential (primary) hypertension; E78.1 Pure hyperglyceridemia; K21.9 Gastro-esophageal reflux disease without esophagitis; D64.9 Anemia, unspecified; Z86.718 Personal history of other venous thrombosis and embolism; Z79.01 Long term (current) use of anticoagulants; Z79.899 Other long term (current) drug therapy; Z88.2 Allergy status to sulfonamides
CPT/HCPCS: 80048; 85027; 92960; 93005; 93010; J2704

== ENCOUNTER 2023-12-16 09:39 | Outpatient (CLI) | payer MEDICARE, BC | END 2023-12-16 09:40 | disposition home or self-care (01) | LOC: BICMAMMO 09:39 | PROVIDERS: ATTEND Internal Medicine | DX: Z12.31 Encounter for screening mammogram for malignant neoplasm of breast (principal) | CPT/HCPCS: 77063; 77067 ==